=== PATIENT | male | born 1945 | race Caucasian/White ===

== ENCOUNTER 2022-01-22 13:04 | Outpatient (RCR) | payer MEDICARE, OTHER, SELFPAY ==
[2022-01-22] MEDS: SODIUM CHLORIDE 0.9 % (FLUSH) 10 ML SYRINGE IVF (13:35)
[2022-01-22] MEDS: HEPARIN 500 UNIT/5 ML SYRINGE IVF (13:36)
== END 2022-02-21 23:59 | disposition home or self-care (01) ==
LOC: CCIC 13:04
PROVIDERS: PCP Family Medicine; Visit Provider Clinical Nurse Specialist
DX: Z45.2 Encounter for adjustment and management of vascular access device (principal)
CPT/HCPCS: 99211; J1642

== ENCOUNTER 2022-04-08 13:34 | Outpatient (RCR) | payer MEDICARE, OTHER, SELFPAY ==
--- NOTE | 2022-04-08 15:28 | ONC.NURNOTE ---
Patient will be contacting his MD for orders for port flushes. pt received our fax/phone number.
[2022-04-08] MEDS: HEPARIN 500 UNIT/5 ML SYRINGE IVF (15:31)
[2022-04-08] MEDS: SODIUM CHLORIDE 0.9 % (FLUSH) 10 ML SYRINGE IVF (15:31)
== END 2022-10-05 23:59 | disposition home or self-care (01) ==
LOC: CCIC 13:34
PROVIDERS: PCP Family Medicine; Referring Provider Family Medicine; Visit Provider Clinical Nurse Specialist
DX: Z45.2 Encounter for adjustment and management of vascular access device (principal)
CPT/HCPCS: 99211; J1642

== ENCOUNTER 2023-08-23 10:45 | Outpatient (RCR) | payer MEDICARE, OTHER, SELFPAY | END 2023-08-23 11:35 | disposition home or self-care (01) | PROVIDERS: PCP Family Medicine; Visit Provider Family Medicine | DX: M54.16 Radiculopathy, lumbar region (principal); M25.552 Pain in left hip; M54.50 Low back pain, unspecified; Z51.89 Encounter for other specified aftercare | CPT/HCPCS: 97110; 97140; 97162 ==

== ENCOUNTER 2023-11-24 11:30 | Outpatient (RCR) | payer MEDICARE, OTHER, SELFPAY ==
[2023-08-17] MEDS: HEPARIN 500 UNIT/5 ML SYRINGE IVF (11:29)
[2023-08-17] MEDS: SODIUM CHLORIDE 0.9 % (FLUSH) 10 ML SYRINGE IVF (11:29)
[2023-11-24] MEDS: HEPARIN 500 UNIT/5 ML SYRINGE IVF (11:32)
[2023-11-24] MEDS: SODIUM CHLORIDE 0.9 % (FLUSH) 10 ML SYRINGE IVF (11:32)
== END 2024-02-13 23:59 | disposition home or self-care (01) ==
LOC: CCIC 11:30
PROVIDERS: PCP Family Medicine; Referring Provider Family Medicine; Visit Provider Internal Medicine Hematology & Oncology
DX: Z45.2 Encounter for adjustment and management of vascular access device (principal)
CPT/HCPCS: 99211; J1642

== ENCOUNTER 2024-08-06 14:00 | Outpatient (RCR) | payer MEDICARE, OTHER, SELFPAY ==
[2024-02-20] MEDS: SODIUM CHLORIDE 0.9 % (FLUSH) 10 ML SYRINGE IVF (12:05)
[2024-02-20] MEDS: HEPARIN 500 UNIT/5 ML SYRINGE IVF (12:05)
[2024-06-25] MEDS: SODIUM CHLORIDE 0.9 % (FLUSH) 10 ML SYRINGE IVF (14:02)
[2024-06-25] MEDS: HEPARIN 500 UNIT/5 ML SYRINGE IVF (14:02)
== END 2024-08-18 23:59 | disposition home or self-care (01) ==
LOC: CCIC 14:00
PROVIDERS: PCP Family Medicine; Referring Provider Family Medicine; Visit Provider Internal Medicine Hematology & Oncology
DX: Z45.2 Encounter for adjustment and management of vascular access device (principal); C15.9 Malignant neoplasm of esophagus, unspecified
CPT/HCPCS: 99211; J1642

== ENCOUNTER 2024-11-16 14:19 | Outpatient (RCR) | payer MEDICARE, OTHER, SELFPAY ==
[2024-11-16 14:29] VITALS: BP 171/88; PULSE 64; RESP 20; TEMP 36.5; O2SAT 98
== END 2025-05-15 23:59 | disposition home or self-care (01) ==
LOC: CCIC 14:19
PROVIDERS: PCP Family Medicine; Referring Provider Family Medicine; Visit Provider Internal Medicine Hematology & Oncology
DX: Z45.2 Encounter for adjustment and management of vascular access device (principal); C15.9 Malignant neoplasm of esophagus, unspecified
CPT/HCPCS: 99211

== ENCOUNTER 2025-04-24 14:56 | Outpatient (CLI) | payer MEDICARE, OTHER, SELFPAY ==
--- NOTE | 2025-04-24 14:44 | P.PCN_ITS ---
Procedure Note Time Seen by Provider: 15:20 Date Seen: 04/24/25 Provider Contact Time: 16:00 Date of procedure: 04/24/25 Will [facility] bill your pro fee for this procedure?: Yes Procedure: CRYONEUROLYSIS TREATMENT REPORT REFERRING PROVIDER: Ty Thayer TREATMENT PROVIDER: Marbin Ronquillo PREOPERATIVE DIAGNOSIS: Left knee osteoarthritis POSTOPERATIVE DIAGNOSIS: Left knee osteoarthritis? PROCEDURE: Cryoneurolysis of Multiple Sensory Nerves of the Knee ANESTHESIA: Local INDICATIONS: The patient is a very pleasant 79-year-old male with primary osteoarthritis involving the left knee who presents today for cryoneurolysis of multiple sensory nerves to the knee for severe knee pain.?Patient medical history was reviewed. The risks, benefits, treatment alternatives, and complications were discussed with the patient, including but not limited to b leeding, infection, nerve or tissue damage.?Informed consent was obtained. ? PRE-TREATMENT MOTOR ASSESSMENT/PAIN SCORE: Patient was able to demonstrate intact gross motor function with plantarflexion, dorsiflexion, adduction, abduction, hip flexion, and extension of the lower extremity.?Pre-treatment pain score of 3-10 out of 10 in the left knee. DESCRIPTION OF PROCEDURE: After obtaining informed consent, the patient was brought back to the treatment room and positioned supine on the table.?The left lower extremity was prepped with Chlorhexadine.?We began the procedure by performing our procedural pause.?Once this was completed and verified to be accurate, I began the procedure by identifying the nerves with the use of bedside ultrasound.?After the nerves were identified, the skin was marked and, using 1% lidocaine plain, the area of the nerves were anesthetized. ? After the anesthetic was administered, the Smart Tip 2190 cryoneurolysis needle was inserted into the treatment sites using ultrasound guidance.?Treatment was then initiated on the left lower extremity with the following nerves treated: Superior, superior medial, superior lateral, inferior medial genicular nerves. At the termination of the treatment, the cryoneurolysis needle was removed with the patient's skin cleansed and pressure dressing applied. Patient tolerated the procedure without any incident or concern.? Patient was then instructed to stand, mobilize the joint, and was examined to ensure gross motor skills were intact. COMPLICATIONS: None POST-TREATMENT PAIN SCORE: 0 out of 10. Left knee DISPOSITION: Discharge instructions were given to the patient with education on the post-procedure expectations. Patient was instructed to call the Ortho clinic with any post-procedure concerns or questions.
[2025-04-24 14:59] VITALS: BP 170/63
[2025-04-24 15:05] VITALS: BP 174/71; PULSE 60; RESP 16; TEMP 36.9; O2SAT 97
--- NOTE | 2025-04-24 15:07 | PC.NURSE ---
BP at preop this AM 136/65
[2025-04-24 16:06] VITALS: BP 188/73; PULSE 65; RESP 16; O2SAT 98
--- NOTE | 2025-04-24 16:10 | PC.NURSE ---
Advised to monitor BP at home and follow up with PCP if BP continues to be elevated.
== END 2025-04-24 16:11 | disposition home or self-care (01) ==
LOC: OP CLINIC 14:57
PROVIDERS: PCP Family Medicine; Visit Provider Nurse Anesthetist, Certified Registered
DX: M17.12 Unilateral primary osteoarthritis, left knee (principal)
CPT/HCPCS: 64640; 76942; C9809

== ENCOUNTER 2025-05-07 07:35 | Day surgery (SDC) | payer MEDICARE, OTHER, SELFPAY ==
[2025-05-07] VITALS (28 sets, daily range): BP systolic 114–179; BP diastolic 55–99; PULSE 48–92; RESP 12–16; TEMP 35.8–36.7; O2SAT 92–97; BMI 26.6
[2025-05-07] MEDS: LACTATED RINGERS 1000 ML 1,000 ML 100 ML IV ×2 (07:40→09:35)
[2025-05-07] MEDS: CELECOXIB 200 MG CAPSULE PO ×2 (08:41→20:14)
[2025-05-07] MEDS: OXYCODONE (CR) 10 MG TAB.ER.12H PO (08:41)
[2025-05-07] MEDS: ACETAMINOPHEN 500 MG TABLET 1000 MG PO ×3 (08:41→21:55)
[2025-05-07] MEDS: SODIUM CHLORIDE 0.9 % (FLUSH) 10 ML SYRINGE IVF (08:42)
[2025-05-07] MEDS: MIDAZOLAM HCL 1 MG/ML inj IVP (08:50)
[2025-05-07] MEDS: TRANEXAMIC ACID 100 MG/ML INJ 1000 MG IV (09:15)
--- NOTE | 2025-05-07 09:31 | P.ANES_ITS ---
Anesthesia Charges Start Date/Time Anesthesia Start Date: 05/07/25 Anesthesia Start Time: 08:58 Stop Date/Time Anesthesia Stop Date: 05/07/25 Anesthesia Stop Time: 11:11 Summary Extremes of Age - Over 70 or under 1: MDA Coding CPT Codes CPT Codes: ANESTH KNEE ARTHROPLASTY - 41315 ([id number]) P2 - PATIENT W/MILD SYST DISEASE, QK - SCIENTIFIC ILLUSTRATOR 2-4 CNCRNT ANES PROC, QX - COMMERCIAL DIVER SVC W/ MD MED DIRECTION Additional Codes: Summary - Extremes of Age - Over 70 or under 1: MDA ([id number])
--- NOTE | 2025-05-07 09:31 | W.ANESCHARGE ---
Anesthesia Charges Start Date/Time Anesthesia Start Date: 05/07/25 Anesthesia Start Time: 08:58 Stop Date/Time Anesthesia Stop Date: 05/07/25 Anesthesia Stop Time: 11:11 Summary Extremes of Age - Over 70 or under 1: MDA Coding CPT Codes CPT Codes: ANESTH KNEE ARTHROPLASTY - 99905 ([id number]) P2 - PATIENT W/MILD SYST DISEASE, QK - ADJUNCT ENGLISH INSTRUCTOR 2-4 CNCRNT ANES PROC, QX - HARDWARE SALES ASSISTANT SVC W/ MD MED DIRECTION Additional Codes: Summary - Extremes of Age - Over 70 or under 1: MDA ([id number])
--- NOTE | 2025-05-07 09:34 | W.PM.NB ---
Nerve Block Nerve Block Time Seen by Provider: 08:50 Date Seen: 05/07/25 Type of block requested by surgeon for post-operative analgesia: adductor canal Side: left Time out performed: Yes Verification of patient name: Yes Verification of date of : Yes Site marking: site marked Name of person performing procedure: Yg Continuous monitoring Was continuous monitoring of O2 sat, B/P, environmental monitoring specialist, recorded every 15 minutes?: Yes Procedure Checklist: sterile prep, needles and gloves Ultrasound guided. Images saved: Yes Medications given in 5ml increments after negative aspiration: Marcaine %: 0.25 mL: 15 Needle gauge: 20 Precedex (mcg): 25 Patient tolerated procedure well: Yes Block Charges Block Charge (with Pro Fee): Femoral Nerve Use of Ultrasound Machine for Block: Yes- US Guidance/pain block
--- NOTE | 2025-05-07 09:35 | W.PM.NB ---
Nerve Block Nerve Block Time Seen by Provider: 08:50 Date Seen: 05/07/25 Type of block requested by surgeon for post-operative analgesia: geniculars Side: left Time out performed: Yes Verification of patient name: Yes Verification of date of : Yes Site marking: site marked Name of person performing procedure: Yg Continuous monitoring Was continuous monitoring of O2 sat, B/P, registered nurse cardiac telemetry, recorded every 15 minutes?: Yes Procedure Checklist: sterile prep, needles and gloves Ultrasound guided. Images saved: Yes Medications given in 5ml increments after negative aspiration: Marcaine %: 0.25 mL: 9 Needle gauge: 25 Patient tolerated procedure well: Yes Block Charges Block Charge (with Pro Fee): Genicular Nerve Block
--- NOTE | 2025-05-07 09:38 | SUR.PREOP ---
TIME?OUT:?0849 PT/RN/MDA?VERIFICATION?OF?SURGICAL?SITE,?PROCEDURE,?AND?CONSENT OBTAINED?PRIOR?TO?INVASIVE?PROCEDURE.
--- NOTE | 2025-05-07 10:23 | CRLHL7_ITS ---
For Patients: As a result of the Cures Act, medical imaging exams and procedure reports are released immediately into your electronic medical record. You may view this report before your referring provider. If you have questions, please contact your health care provider. INDICATION: Total knee arthroplasty. TECHNIQUE: Two view LEFT knee portable. IMPRESSION : Prosthetic components intact. Patellar resurfacing. Anatomic alignment. No acute osseous lesions. Dictated by Mamadou Steele MD @ 05/08/2025 10:46:17 AM (Electronically Signed)
--- NOTE | 2025-05-07 10:26 | P.ORPRC_ITS ---
Procedure Note Date of procedure: 05/07/25 Procedure: PREOPERATIVE DIAGNOSIS: Left knee osteoarthritis POSTOPERATIVE DIAGNOSIS: Left knee osteoarthritis NAME OF OPERATION: Left total knee arthroplasty SURGEON: Liam Thayer MD MILL HELPER: Briana Peterson PA-C ANESTHESIA: Spinal plus general endotracheal ESTIMATED BLOOD LOSS: 0 mL COMPLICATIONS: None SPECIMENS: None DRAINS: None PREOPERATIVE ANTIBIOTICS: Ancef 1 g, antibiotic impregnated cement IMPLANTS: 1. J&J Attune # 7 posterior stabilized femur 2. # 7 fixed-bearing tibia 3. # 7 posterior stabilized, 5 mm fixed-bearing polyethylene 4. 38 patella INDICATIONS: The patient is a 79-year-old with a longstanding history of severe, unrelenting left knee pain secondary to end-stage (grade IV) left knee osteoarthritis. Despite appropriate nonoperative management, including activity modification, anti-inflammatories, fwvg-rag-[id number] pain medication, bracing, physical therapy, and injections they continue to have pain and disability. Operative intervention was offered. The risks, benefits and expected outcomes were discussed in detail. These included but were not limited to: Infection, bleeding, injury to blood vessel or nerve, venous thromboembolism. All questions were answered to their satisfa ction. Use of an front desk assistant was necessary throughout the case for patient positioning and safety, soft tissue retraction, and closure. PROCEDURE: Spinal anesthesia was administered. The patient was placed supine on the operating table. The front desk assistant made sure the patient was positioned appropriately. The lower extremity was prepped and draped in the usual sterile fashion. The limb was exsanguinated with the Hugh bandage. The pneumatic tourniquet was inflated to 225mmHg. A standard anterior incision was made with the knee in flexion. Subcutaneous dissection was sharply taken through fascial layer #1. Full-thickness medial and lateral flaps were elevated. The front desk assistant retracted the soft tissues and protected them throughout the case. A standard subvastus approach was made. Th e patella was subluxed. The infrapatellar fat pad was preserved. The menisci and cruciate ligaments were sharply d?brided. Marginal osteophytes were d?brided with the rongeur. The drill was used to penetrate the femoral canal. The intramedullary femoral guide was placed for a 5-degree valgus cut, removing 12 mm off the distal femur. The saw was used to make the cut. Whitesides line and the trans epicondylar axis were marked. The femoral sizing guide was pinned onto the distal femur. Three degrees of external rotation nicely parallels the transepicondylar axis. Pins were placed for posterior referencing. The four-in-one cutting guide was pinned onto the distal femur. The anterior, posterior, and chamfer cuts were made. The front desk assistant protected the collateral ligaments. The box cutting guide was pinned. The box cuts were made. The boxed trial was placed and was an excellent fit. Drill holes for the lugs were made. Attention was then turned to the proximal tibia. The extramedullary intramedullary tibial guide was placed for a neutral varus/valgus cut with 5 degrees of posterior slope, removing 2 mm based off the medial tibial surface. The front desk assistant protected the collateral ligaments and the neurovascular bundle. The saw was used to make the cut. Trial components were placed. The knee was nicely balanced in both flexion and extension. The trial components were removed. The tray was placed in appropriate rotation, parallel to our tibial cutting pins. It was pinned by the front desk assistant and the drill and the punch were used. The tray was removed. The punch was used again. We placed a bone plug in the femoral canal. Attention was then turned to the patella. [place] patellar thickness was 25 mm. The lobster claw resection guide was used with the 9.5 mm esther. The saw was used to make the cut. Drill holes were made by the front desk assistant. The trial was placed and was an excellent fit. Cancellous surfaces were irrigated with pulse lavage and thoroughly dried by the front desk assistant. We cemented the tibial component, then the femoral component. We impacted the 5 mm polyethylene onto the tibial tray. The knee was brought into full extension. We then cemented the patellar component. Excessive cement was removed. The cement was allowed to harden. The knee was taken through a range of motion and was found to be nicely balanced in both flexion and extension. The patella tracks centrally. The front desk assistant did a three minute dilute Betadine solution soak. The front desk assistant irrigated the wound with 3 liters of normal saline via pulse lavage. The assist ant reapproximated the extensor mechanism with #1 Vicryl in an interrupted byyrax-vx-ghkuc fashion. The front desk assistant then ran the extensor mechanism with a #1 PDO Stratafix. The front desk assistant closed the subcutaneous tissues with a 3-0 Stratafix and the skin with a running 3-0 Stratafix in a subcuticular fashion. Glue was used to seal the skin. The front desk assistant placed a dry dressing. Sponge and needle counts were correct x2. The patient tolerated the procedure well. There were no apparent complications. They were carefully transferred to the hospital bed and taken to the postanesthesia care unit in satisfactory condition. PLAN: The patient will be mobilized with physical therapy. Aspirin will be used for DVT prophylaxis. They will be discharged to home once medically appropriate.
--- NOTE | 2025-05-07 11:14 | P.ANES_ITS ---
Anesthesia Charges Start Date/Time Anesthesia Start Date: 05/07/25 Anesthesia Start Time: 08:58 Stop Date/Time Anesthesia Stop Date: 05/07/25 Anesthesia Stop Time: 11:11 Coding CPT Codes CPT Codes: ANESTH KNEE ARTHROPLASTY - 80694 ([id number]) P2 - PATIENT W/MILD SYST DISEASE, QK - POULTRY HANGER 2-4 CNCRNT ANES PROC, QX - CARPET FLOOR LAYER APPRENTICE SVC W/ MD MED DIRECTION
--- NOTE | 2025-05-07 11:14 | W.ANESCHARGE ---
Anesthesia Charges Start Date/Time Anesthesia Start Date: 05/07/25 Anesthesia Start Time: 08:58 Stop Date/Time Anesthesia Stop Date: 05/07/25 Anesthesia Stop Time: 11:11 Coding CPT Codes CPT Codes: ANESTH KNEE ARTHROPLASTY - 78329 ([id number]) P2 - PATIENT W/MILD SYST DISEASE, QK - WIRE STRANDER 2-4 CNCRNT ANES PROC, QX - WIRE TINNER SVC W/ MD MED DIRECTION
[2025-05-07] MEDS: CEFAZOLIN 2 GM in 0.9 % SODIUM CHLORIDE Mini-bag 100 ML IVPB ×2 (15:06→22:59)
--- NOTE | 2025-05-07 15:22 | PM.IMCN1 ---
Date of Consult Patient: Toño Patient Consult date: 05/07/25 Requesting Physician: Orthopedics Primary Care Provider: Isaiah Pierre MD Consult Narrative Narrative: Dennis Carrillo is a 79 year old male is an 79 year old male with a complicated PMH including metastatic esophageal cancer, GERD, HTN, DM2, BPH, Cdiff (Jul 2024) who underwent an elective RTKA today by Dr. Thayer for severe osteoarthritis. Post operatively he is feeling well. He notes feeling tired after receiving oxycodone for pain. He is sitting in a bedside chair, his is also in the room. Review of Systems Status of ROS: Reports: 6 or more systems reviewed and unremarkable except as noted in History and below [facility] Medical History (Updated 05/07/25 @ 17:03 by Raquel Dwyer MD) Normocytic anemia ?D64.9 - Anemia, unspecified (ICD-10) BPH (benign prostatic hyperplasia) ?N40.0 - Benign prostatic hyperplasia without lower urinary tract symptoms (ICD-10) Weight loss ?R63.4 - Abnormal weight loss (ICD-10) Peripheral sensory neuropathy ?G60.8 - Other hereditary and idiopathic neuropathies (ICD-10) Peyronie's disease ?N48.6 - Induration penis plastica (ICD-10) DJD (degenerative joint disease) ?M19.90 - Unspecified osteoarthritis, unspecified site (ICD-10) Early satiety ?R68.81 - Early satiety (ICD-10) GERD (gastroesophageal reflux disease) ?K21.9 - Gastro-esophageal reflux disease without esophagitis (ICD-10) Dyslipidemia ?E78.5 - Hyperlipidemia, unspecified (ICD-10) Hypertension ?I10 - Essential (primary) hypertension (ICD-10) Hyperlipidemia ?E78.5 - Hyperlipidemia, unspecified (ICD-10) C. difficile colitis ?A04.72 - Enterocolitis due to Clostridium difficile, not specified as recurrent (ICD-10) Esophageal cancer ?C15.9 - Malignant neoplasm of esophagus, unspecified (ICD-10) Adenomatous colon polyp ?D12.6 - Benign neoplasm of colon, unspecified (ICD-10) Metastatic cancer ?C79.9 - Secondary malignant neoplasm of unspecified site (ICD-10) Former smoker ?Z87.891 - Personal history of nicotine dependence (ICD-10) Diverticulosis of intestine, part unspecified, without perforation or abscess without bleeding ?K57.90 - Diverticulosis of intestine, part unspecified, without perforation or abscess without bleeding (ICD-10) Diverticulosis of large intestine without perforation or abscess without bleeding ?K57.30 - Diverticulosis of large intestine without perforation or abscess without bleeding (ICD-10) Fatty (change of) liver, not elsewhere classified ?K76.0 - Fatty (change of) liver, not elsewhere classified (ICD-10) Cyst of kidney, acquired ?N28.1 - Cyst of kidney, acquired (ICD-10) Dysphagia ?R13.10 - Dysphagia, unspecified (ICD-10) Abnormality of gait ?R26.9 - Unspecified abnormalities of gait and mobility (ICD-10) Secondary malignant neoplasm of left lung ?C78.02 - Secondary malignant neoplasm of left lung (ICD-10) Secondary malignant neoplasm of right lung ?C78.01 - Secondary malignant neoplasm of right lung (ICD-10) Inguinal hernia without obstruction or gangrene ?K40.90 - Unilateral inguinal hernia, without obstruction or gangrene, not specified as recurrent (ICD-10) Solitary pulmonary nodule ?R91.1 - Solitary pulmonary nodule (ICD-10) Malignant neoplasm of cardia ?C16.0 - Malignant neoplasm of cardia (ICD-10) Malignant neoplasm of esophagus, unspecified ?C15.9 - Malignant neoplasm of esophagus, unspecified (ICD-10) Adverse effect of antineoplastic and immunosuppressive drugs, initial encounter ?T45.1X5A - Adverse effect of antineoplastic and immunosuppressive drugs, initial encounter (ICD-10) Type 2 diabetes mellitus without complication ?E11.9 - Type 2 diabetes mellitus without complications (ICD-10) Essential hypertension ?I10 - Essential (primary) hypertension (ICD-10) Liver disease ?K76.9 - Liver disease, unspecified (ICD-10) Calculus of kidney in male ?N20.0 - Calculus of kidney (ICD-10) Adenocarcinoma of gastroesophageal junction ?C16.0 - Malignant neoplasm of cardia (ICD-10) Surgical History (Updated 05/07/25 @ 17:00 by Raquel Dwyer MD) History of total left knee replacement (05/07/25) ?Z96.652 - Presence of left artificial knee joint (ICD-10) H/O circumcision ?Z98.890 - Other specified postprocedural states (ICD-10) S/P tendon repair ?Z98.890 - Other specified postprocedural states (ICD-10) History of right shoulder replacement ?Z96.611 - Presence of right artificial shoulder joint (ICD-10) H/O hernia repair (~2008) ?Z98.890 - Other specified postprocedural states (ICD-10) ?Z87.19 - Personal history of other diseases of the digestive system (ICD-10) S/P left knee arthroscopy (~11/2010) ?Z98.890 - Other specified postprocedural states (ICD-10) History of left shoulder replacement (~05/2011) ?Z96.612 - Presence of left artificial shoulder joint (ICD-10) H/O colonoscopy ?Z98.890 - Other specified postprocedural states (ICD-10) H/O esophagectomy (09/17/15) ?Z98.890 - Other specified postprocedural states (ICD-10) ?Z90.49 - Acquired absence of other specified parts of digestive tract (ICD-10) History of surgery of liver (~06/2019) ?Z98.890 - Other specified postprocedural states (ICD-10) History of lung surgery (08/15/20) ?Z98.890 - Other specified postprocedural states (ICD-10) Social History Narrative: . 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 Quit smoking over 50 years ago, no other tobacco use. Drinks 1 shot of liquor per week. Problems where you live: no known problems Smoking Status: Never smoker How often do you have a drink containing alcohol: monthly or less Alcohol type: beer How many standard drinks containing alcohol do you have on a typical day: 1 or 2 How often do you have six or more drinks on one occasion: Never AUDIT-C Alcohol total score: 1 Non-prescribed substance use: denies use Caffeine: Yes service: No Meds Home Medications and Allergies Home Medications ?Medication ?Instructions ?Recorded ?Confirmed ?Type omeprazole 40 mg capsule,delayed 40 mg PO DAILY@11/07/24 05/07/25 History release tamsulosin 0.4 mg capsule 0.8 mg PO DAILY@11/07/24 05/07/25 History ibuprofen 200 mg tablet 400 mg PO Q8H PRN 04/01/25 05/07/25 History ascorbic acid (vitamin C) 500 mg 500 mg PO DAILY 05/07/25 05/07/25 History tablet (Vitamin C) aspirin 81 mg chewable tablet 81 mg PO BID for DVT prophylaxis 05/07/25 Rx (Aspirin Childrens) 30 days #60 tabs mecobalamin (vitamin B12) 1,000 1,000 mcg PO DAILY 05/07/25 05/07/25 History mcg chewable tablet oxycodone 5 mg tablet 2.5 - 5 mg (0.5 - 1 x 5 mg) PO 05/07/25 Rx Q4-6H PRN Pain #42 tabs pyridoxine (vitamin B6) 100 mg 200 mg PO DAILY 05/07/25 05/07/25 History tablet sennosides 8.6 mg tablet (Senna 17.2 mg (2 x 8.6 mg) PO BID PRN 05/07/25 Rx Lax) constipation #100 tabs Allergies Allergy/AdvReac Type Severity Reaction Status Date / Time Vcxnsax-YPA-FjE Reductase Allergy Severe Verified 05/07/25 08:00 Inhibitor statins Allergy Unknown Uncoded 04/01/25 15:08 Exam Narrative: Exam Narrative: General: No acute distress. Awake alert oriented x3. HEENT: Normocephalic atraumatic, pupils equally round and reactive to light and accommodation. Oropharynx clear. Mucous membranes are moist. No cervical lymphadenopathy, thyromegaly or carotid bruits. Cardiovascular: Regular rate and rhythm. No murmurs, gallops, or rubs. Chest: No increased work of breathing. Clear to auscultation bilaterally. No crackles or wheezes. Abdomen: Bowel sounds present. Soft, nondistended, nontender. No hepatosplenomegaly or masses. Extremities: Left knee bandage is clean, dry, and intact. No edema, no cyanosis or clubbing. Skin: No jaundice, no pallor, no rashes on visible skin. Const: Vital Signs, click to edit/add: Vital Signs - 24 hr 05/07/25 08:18 05/07/25 11:06 05/07/25 11:10 Temperature 98.0 F 97.9 F Pulse Rate 63 58 L 56 L Pulse Rate [Right Pulse Oximeter] Respiratory Rate 16 12 14 Blood Pressure 179/74 H 132/58 L 134/59 L Blood Pressure [Le ft Arm] Pulse Oximetry 97 96 94 Oxygen Delivery Me thod Room Air Room Air 05/07/25 11:15 05/07/25 11:20 05/07/25 11:25 Temperature Pulse Rate 58 L 57 L 61 Pulse Rate [Right Pulse Oximeter] Respiratory Rate 16 15 16 Blood Pressure 123/55 L 114/59 L 121/58 L Blood Pressure [Le ft Arm] Pulse Oximetry 95 94 94 Oxygen Delivery Me thod 05/07/25 11:30 05/07/25 11:35 05/07/25 11:49 Temperature 97.4 F L 96.5 F L Pulse Rate 54 L 63 Pulse Rate [Right Pulse Oximeter] 57 L Respiratory Rate 14 12 16 Blood Pressure 132/60 127/65 Blood Pressure [Le ft Arm] 132/70 Pulse Oximetry 95 96 97 Oxygen Delivery Me thod Room Air 05/07/25 12:00 05/07/25 12:15 05/07/25 12:30 Temperature 96.7 F L Pulse Rate Pulse Rate [Right Pulse Oximeter] 52 L 48 L 51 L Respiratory Rate 16 16 16 Blood Pressure Blood Pressure [Le ft Arm] 134/63 132/62 126/72 Pulse Oximetry 97 95 96 Oxygen Delivery Me thod Room Air Room Air Room Air 05/07/25 12:45 05/07/25 13:00 05/07/25 13:30 Temperature 97.0 F L Pulse Rate Pulse Rate [Right Pulse Oximeter] 52 L 49 L 50 L Respiratory Rate 16 16 16 Blood Pressure Blood Pressure [Le ft Arm] 141/99 H 141/67 H 146/69 H Pulse Oximetry 95 96 97 Oxygen Delivery Me thod Room Air Room Air Room Air 05/07/25 14:00 Temperature 97.2 F L Pulse Rate Pulse Rate [Right Pulse Oximeter] 53 L Respiratory Rate 16 Blood Pressure Blood Pressure [Le ft Arm] 144/71 H Pulse Oximetry 96 Oxygen Delivery Me thod Room Air Assessment and Plan Assessment and plan (1) History of total left knee replacement: Problem comment: Left total knee arthroplasty. Dr. Thayer, 05/07/25 - routine post op cares - VTE prophylaxis with SCDs, BID aspirin 81mg Status: Acute (2) Osteoarthritis of left knee: Status: Chronic (3) Type 2 diabetes mellitus without complication: Problem comment: 02/27/25 A1c 6.9% medication discontinued in february 2025 per patient Status: Chronic (4) GERD (gastroesophageal reflux disease): Problem comment: - well controlled with omeprazole - s/p esophagectomy 2016 for esophageal cancer, keep HOB at 30 degrees Status: Chronic (5) BPH (benign prostatic hyperplasia): Problem comment: - Continue home tamsulosin - at risk for periop urinary retention, monitor Status: Chronic (6) Normocytic anemia: Problem comment: 04/24/25 Hgb 13.1 - Noted Status: Chronic (7) Dyslipidemia: Problem comment: - diet controlled Status: Chronic
[2025-05-07] MEDS: OMEPRAZOLE 20 MG CAPSULE DR 40 MG PO (17:29)
[2025-05-07] MEDS: TAMSULOSIN HCL 0.4 MG CAPSULE 0.8 MG PO (17:30)
--- NOTE | 2025-05-07 19:42 | PC.NURSE ---
end of shift. Pt has been pleasant. pain is being controlled with prn pain meds. he is eating, drinking and voiding. IV is patent. dressing is C/D/I. active ice the the knee. fall precautions are on. call light is reach. will monitor.
[2025-05-07] MEDS: ASPIRIN 81 MG TABLET EC PO (20:14)
[2025-05-07] MEDS: SENNOSIDES 1 TAB TABLET 2 TAB PO (20:14)
[2025-05-08] MEDS: LACTATED RINGERS 1000 ML 1,000 ML 70 ML IV (00:35)
[2025-05-08 02:08] VITALS: BP 130/65; PULSE 67; RESP 16; TEMP 36.3; O2SAT 95
[2025-05-08 03:58] VITALS: TEMP 36.3
[2025-05-08] MEDS: ACETAMINOPHEN 500 MG TABLET 1000 MG PO ×2 (03:58→09:55)
--- NOTE | 2025-05-08 05:13 | PC.NURSE ---
Pt rested well. Pain controlled. Up several times this night voiding. Moving well via walker. Knee CDI.
[2025-05-08 07:00] VITALS: BP 127/66; PULSE 68; RESP 16; O2SAT 96
--- NOTE | 2025-05-08 08:14 | PC.SOCIAL ---
Social Service Consult: SW met with patient who reports that he is doing well. Patient explains that he will have his for support at home and already has everything he feels he needs set up. SW to assist if needs/concerns arise.
--- NOTE | 2025-05-08 08:32 | PM.ORPN ---
Subjective Subjective Time Seen by Provider: 08:33 Date Seen: 05/08/25 Principal diagnosis: Status post left knee replacement Interval history: Dennis is comfortable. He has been ambulating since surgery. He will discharge home today. Denies nausea vomiting. Ortho Exam Narrative Exam Narrative: Alert and oriented x3. Patient is in no acute distress. Converses without labored breathing. Hearing is grossly intact. Ambulates with a walker. Examination of left lower extremity shows dressing is intact. No erythema or warmth or sign of infection. He is able to straight leg raise. Calves are soft and nontender. CMS intact left lower extremity Const Vital Signs, click to edit/add: Vital Signs - 24 hr 05/07/25 11:06 05/07/25 11:10 05/07/25 11:15 Temperature 97.9 F Pulse Rate 58 L 56 L 58 L Pulse Rate [Left Dorsalis Pedis] Pulse Rate [Right Pulse Oximeter] Respiratory Rate 12 14 16 Blood Pressure 132/58 L 134/59 L 123/55 L Blood Pressure [Left Arm] Pulse Oximetry 96 94 95 Oxygen Delivery Method Room Air 05/07/25 11:20 05/07/25 11:25 05/07/25 11:30 Temperature Pulse Rate 57 L 61 54 L Pulse Rate [Left Dorsalis Pedis] Pulse Rate [Right Pulse Oximeter] Respiratory Rate 15 16 14 Blood Pressure 114/59 L 121/58 L 132/60 Blood Pressure [Left Arm] Pulse Oximetry 94 94 95 Oxygen Delivery Method 05/07/25 11:35 05/07/25 11:49 05/07/25 12:00 Temperature 97.4 F L 96.5 F L Pulse Rate 63 Pulse Rate [Left Dorsalis Pedis] Pulse Rate [Right Pulse Oximeter] 57 L 52 L Respiratory Rate 12 16 16 Blood Pressure 127/65 Blood Pressure [Left Arm] 132/70 134/63 Pulse Oximetry 96 97 97 Oxygen Delivery Method Room Air Room Air 05/07/25 12:15 05/07/25 12:30 05/07/25 12:45 Temperature 96.7 F L Pulse Rate Pulse Rate [Left Dorsalis Pedis] Pulse Rate [Right Pulse Oximeter] 48 L 51 L 52 L Respiratory Rate 16 16 16 Blood Pressure Blood Pressure [Left Arm] 132/62 126/72 141/99 H Pulse Oximetry 95 96 95 Oxygen Delivery Method Room Air Room Air Room Air 05/07/25 13:00 05/07/25 13:30 05/07/25 14:00 Temperature 97.0 F L 97.2 F L Pulse Rate Pulse Rate [Left Dorsalis Pedis] Pulse Rate [Right Pulse Oximeter] 49 L 50 L 53 L Respiratory Rate 16 16 16 Blood Pressure Blood Pressure [Left Arm] 141/67 H 146/69 H 144/71 H Pulse Oximetry 96 97 96 Oxygen Delivery Method Room Air Room Air Room Air 05/07/25 15:05 05/07/25 15:05 05/07/25 16:00 Temperature Pulse Rate Pulse Rate [Left Dorsalis Pedis] Pulse Rate [Right Pulse Oximeter] 71 77 Respiratory Rate 16 16 16 Blood Pressure Blood Pressure [Left Arm] 147/77 H 147/81 H Pulse Oximetry 96 96 92 Oxygen Delivery Method Room Air Room Air Room Air 05/07/25 17:00 05/07/25 18:00 05/07/25 19:13 Temperature 96.9 F L Pulse Rate Pulse Rate [Left Dorsalis Pedis] 64 Pulse Rate [Right Pulse Oximeter] 70 74 64 Respiratory Rate 16 16 16 Blood Pressure Blood Pressure [Left Arm] 132/62 136/70 134/79 Pulse Oximetry 93 95 97 Oxygen Delivery Method Room Air Room Air 05/07/25 19:28 05/07/25 19:31 05/07/25 19:33 Temperature 96.9 F L 96.9 F L 96.9 F L Pulse Rate Pulse Rate [Left Dorsalis Pedis] Pulse Rate [Right Pulse Oximeter] Respiratory Rate 16 16 Blood Pressure Blood Pressure [Left Arm] 134/79 134/79 Pulse Oximetry 97 97 Oxygen Delivery Method Room Air Room Air 05/07/25 21:55 05/07/25 22:44 05/07/25 22:46 Temperature 96.9 F L 97.2 F L Pulse Rate Pulse Rate [Left Dorsalis Pedis] 64 Pulse Rate [Right Pulse Oximeter] 92 92 Respiratory Rate 16 16 Blood Pressure Blood Pressure [Left Arm] 141/74 H Pulse Oximetry 94 Oxygen Delivery Method Room Air 05/07/25 22:47 05/08/25 02:08 05/08/25 03:58 Temperature 97.3 F L 97.3 F L Pulse Rate Pulse Rate [Left Dorsalis Pedis] Pulse Rate [Right Pulse Oximeter] 67 Respiratory Rate 16 16 Blood Pressure Blood Pressure [Left Arm] 130/65 Pulse Oximetry 94 95 Oxygen Delivery Method Room Air Room Air Assessment and Plan Assessment and plan (1) History of total left knee replacement: Problem details: Left total knee arthroplasty. Dr. Thayer, 05/07/25 - routine post op cares - VTE prophylaxis with SCDs, BID aspirin 81mg Status: Acute Assessment and Plan: Plan for discharge is today to home if they meet discharge criteria. DVT prophylaxis includes aspirin 81 mg twice daily x1 month, Compression stockings as needed for swelling. Frequent ambulation, every hour throughout the day. Remove dressing in 1 week. Observe wound and phone Orthopedics with any questions or concerns Return to clinic in 1-2 weeks for a wound check as scheduled Return to clinic in 6 weeks with surgeon Minimize narcotic use. Wean off and discontinue soon as possible. Activities as tolerated. No strenuous activity. Outpatient physical therapy as scheduled. Ice and elevate the operative extremity. No restriction on ice. Due to liver disease, acetaminophen prescription sent to his pharmacy is 650 mg q.8 hours p.r.n.. He will minimize his medications and discontinue pain medication as he is able. I spoke with Mariajose Florence regarding acetaminophen.
[2025-05-08] MEDS: CELECOXIB 200 MG CAPSULE PO (09:05)
[2025-05-08] MEDS: ASPIRIN 81 MG TABLET EC PO (09:06)
[2025-05-08] MEDS: SENNOSIDES 1 TAB TABLET 2 TAB PO (09:06)
--- NOTE | 2025-05-08 11:09 | PC.NURSE ---
Pt doing well. VSS. Pain is well controlled with medication and ice. Pt is tolerating oral intake and ambulation. Surgical dressing remains clean, dry and intact. Pt signed belongings and discharge instructions, no further questions at this time. Pt discharged home at 1055 via .
== END 2025-05-08 10:55 | disposition home or self-care (01) ==
LOC: OR 07:37 → MEDSURG 07:38
PROVIDERS: PCP Family Medicine; Visit Provider Orthopaedic Surgery
PROC: (CPT 27447; principal; 2025-05-07 08:45)
DX: M17.12 Unilateral primary osteoarthritis, left knee (principal); G89.18 Other acute postprocedural pain; E11.9 Type 2 diabetes mellitus without complications; I10 Essential (primary) hypertension; N40.0 Benign prostatic hyperplasia without lower urinary tract symptoms; K21.9 Gastro-esophageal reflux disease without esophagitis; D64.9 Anemia, unspecified; Z85.01 Personal history of malignant neoplasm of esophagus
CPT/HCPCS: 27447; 01402; 64447; 64454; 73560; 76942; 97110; 97116; 97161; 97165; 97530; 97535; 99100; A9270; C1776; J0665; J0690; J2250; J3010; J7120